=== PATIENT | female | born 1950 | race Caucasian/White ===

== ENCOUNTER 2017-02-21 09:38 | Outpatient (CLI) | payer BC ==
--- NOTE | 2017-02-25 10:35 | MMO ---
BILATERAL SCREENING MAMMOGRAM: DATE: 02/21/17 HISTORY: 66-year-old female for screening mammography. COMPARISON: 02/02/16, 02/01/15. FINDINGS: Bilateral MLO and CC views of the breasts show heterogeneously dense breast parenchyma, which may low er the sensitivity of mammography. Benign-appearing calcifications are seen in the left breast. There is no evidence of suspicious mass, suspicious cluster of microcalcifications, or area of architectur al distortion. Interpretation of this mammogram was performed with the assistance of computer-aided detection. IMPRESSION: BIRADS 2: Benign Finding(s) Annual screening mammography is recommended. POS: [facility]
== END 2017-02-21 09:39 | disposition home or self-care (01) ==
LOC: SCSMAMMO 09:38
PROVIDERS: ATTEND Obstetrics & Gynecology
DX: Z12.31 Encounter for screening mammogram for malignant neoplasm of breast (principal)
CPT/HCPCS: 77067

== ENCOUNTER 2017-08-31 09:40 | Outpatient (CLI) | payer BC, MEDICARE | END 2017-08-31 09:41 | disposition home or self-care (01) | LOC: BICRAD 09:40 | PROVIDERS: ATTEND Physician Assistant Medical | DX: M47.26 Other spondylosis with radiculopathy, lumbar region (principal); M16.0 Bilateral primary osteoarthritis of hip | CPT/HCPCS: 72100; 72170 ==

== ENCOUNTER 2017-09-08 09:39 | Outpatient (CLI) | payer MEDICARE | END 2017-09-08 09:40 | disposition home or self-care (01) | LOC: BICRAD 09:39 | PROVIDERS: ATTEND Physician Assistant Medical | DX: R63.4 Abnormal weight loss (principal); Q67.6 Pectus excavatum | CPT/HCPCS: 71046 ==

== ENCOUNTER 2017-09-12 08:56 | Outpatient (CLI) | payer MEDICARE, BC | END 2017-09-12 08:57 | disposition home or self-care (01) | LOC: BICMAMMO 08:56 | PROVIDERS: ATTEND Physician Assistant Medical | DX: Z13.820 Encounter for screening for osteoporosis (principal); M85.88 Other specified disorders of bone density and structure, other site | CPT/HCPCS: 77080 ==

== ENCOUNTER 2017-10-26 09:26 | Outpatient (CLI) | payer MEDICARE, BC ==
[~2017-10-26 09:26] MED LIST: ISOVUE-370 76%-LOCM 1 ML ONE
[2017-10-26 10:00] LABS: Estimated GFR-MDRD - POC Greater than 90
== END 2017-10-26 09:27 | disposition home or self-care (01) ==
LOC: BICCT 09:26
PROVIDERS: ATTEND Urology
DX: R31.9 Hematuria, unspecified (principal)
CPT/HCPCS: 74178; 82565

== ENCOUNTER 2017-12-28 08:31 | Outpatient (CLI) | payer MEDICARE, BC ==
--- NOTE | 2017-12-28 10:29 | MRI ---
MRI LUMBAR SPINE NONCONTRAST: CLINICAL INDICATIONS: Lumbar radiculopathy. FINDINGS: Vertebral body heights are maintained. There is termination of the conus medullaris at the L1 level. The iliolumbar ligaments are at the L5 level, which is sacralized. There is multilevel bilateral mild to moderate facet joint degenerative hypertrophy. L1-L2: No significant central canal or foraminal stenosis. L2-L3: There is mild central canal narrowing due to a broad-based disk bulge. A left subarticular a nnular fissure is present. There is no high-grade foraminal stenosis. L3-L4: Mild narrowing of the central canal due to disk osteophyte complex without high-grade foramin al stenosis. There is a left subarticular annular fissure. L4-L5: Broad-based disk osteophyte results in mild narrowing of the central canal. There is mild le ft and minimal right neural foraminal narrowing. L5-S1: No significant central canal or neural foraminal stenosis. IMPRESSION: Multilevel degenerative change of the lumbar spine, as outlined above. POS: [facility]
== END 2017-12-28 08:32 | disposition home or self-care (01) ==
LOC: TBSIIMAG 08:31
PROVIDERS: ATTEND Anesthesiology Pain Medicine
DX: M47.26 Other spondylosis with radiculopathy, lumbar region (principal)
CPT/HCPCS: 72148

== ENCOUNTER 2018-03-02 08:57 | Outpatient (CLI) | payer MEDICARE, BC | END 2018-03-02 08:58 | disposition home or self-care (01) | LOC: BICMAMMO 08:57 | PROVIDERS: ATTEND Physician Assistant Medical | DX: Z12.31 Encounter for screening mammogram for malignant neoplasm of breast (principal); R92.1 Mammographic calcification found on diagnostic imaging of breast | CPT/HCPCS: 77063; 77067 ==

== ENCOUNTER 2019-07-16 14:52 | Emergency (ER) | payer MEDICARE, BC ==
--- NOTE | 2019-07-16 16:00 | RAD ---
Right ankle 3 views HISTORY: Fall. Injury. FINDINGS: Ankle mortise and talar dome are intact. Immediately lateral to the base of the talus is a 0.3 cm irregular shaped ossification. Projecting over the fifth metatarsal base on the frontal and notably views is an irregular linear daiana ency with the appearance of a nondisplaced fracture. Fracture line not well demonstrated on the lateral view. IMPRESSION : Small ossific avulsion from the anterior lateral talus. Olivo fracture fifth metatarsal base.
--- NOTE | 2019-07-16 16:04 | RAD ---
EXAM: RIGHT TIBIA AND FIBULA TWO VIEWS: History: Injury from a fall at home. FINDINGS: No fracture, dislocation, or other significant acute osseous abnormality. IMPRESSION: Unremarkable right tibia/fibula. POS: R[facility]
--- NOTE | 2019-07-16 16:15 | RAD ---
EXAM: RIGHT KNEE FOUR VIEWS: History: Injury from a mechanical fall at home. FINDINGS: No fracture, dislocation, or other significant acute process. IMPRESSION: Unremarkable right knee. No acute fracture or dislocation. POS: RRE
== END 2019-07-16 18:20 | disposition short-term general hospital (02) ==
LOC: ERS 14:52
DX: S92.351A Displaced fracture of fifth metatarsal bone, right foot, initial encounter for closed fracture (principal); J30.2 Other seasonal allergic rhinitis; E03.9 Hypothyroidism, unspecified; F17.210 Nicotine dependence, cigarettes, uncomplicated; W18.30XA Fall on same level, unspecified, initial encounter

== ENCOUNTER 2019-11-19 10:56 | Outpatient (CLI) | payer MEDICARE, BC ==
--- NOTE | 2019-11-19 13:20 | MMO ---
Bilateral MAMMO Bilat Screen [facility]. CLINICAL HISTORY: Patient is 69 years old and is seen for screening. The patient has no family history of breast cancer. The patient has no personal history of cancer. The patient has a history of left Excisional Biopsy more than 10 years ago - benign. VIEWS: The views performed were: bilateral craniocaudal with tomosynthesis; bilateral mediolateral oblique with tomosynthesis; and left exaggerated craniocaudal. FILMS COMPARED: The present examination has been compared to prior imaging studies performed at [facility] on 02/21/2017, and at [facility] on 02/05/2015, 02/02/2016 and 03/02/2018. This study has been interpreted with the assistance of computer-aided detection. MAMMOGRAM FINDINGS: The breasts are heterogeneously dense, which could obscure a lesion on mammography. Benign calcifications are noted bilaterally. There are no suspicious masses, suspicious calcifications, or new areas of architectural distortion. IMPRESSION: THERE IS NO MAMMOGRAPHIC EVIDENCE OF MALIGNANCY. A ROUTINE FOLLOW-UP MAMMOGRAM IN 1 YEAR IS RECOMMENDED. THE RESULTS OF THIS EXAM WERE SENT TO THE PATIENT. ACR BI-RADS Category 2 - Benign finding MAMMOGRAPHY NOTE: 1. A negative mammogram report should not delay a biopsy if a dominant of clinically suspicious mass is present. 2. Approximately 10% to 15% of breast cancers are not detected by mammography. 3. Adenosis and dense breasts may obscure an underlying neoplasm. Reported by: MARY CAGE MD Electonically Signed: [id number]
== END 2019-11-19 10:57 | disposition home or self-care (01) ==
LOC: BICMAMMO 10:56
PROVIDERS: ATTEND Obstetrics & Gynecology
DX: Z12.31 Encounter for screening mammogram for malignant neoplasm of breast (principal); Z91.89 Other specified personal risk factors, not elsewhere classified
CPT/HCPCS: 77063; 77067

== ENCOUNTER 2020-05-15 19:11 | Observation (INO) | payer MEDICARE, BC ==
[~2020-05-15 19:11] MED LIST changes: -ISOVUE-370 76%-LOCM 1 ML ONE; +Iopamidol 370 76% 50 ML VIAL FS ONE; +Iopamidol-370 76% 500 ML 1 ML ONE
[2020-05-15] MEDS ORDERED: Morphine 4 MG/ML VIAL ONE (20:27)
[2020-05-15 20:54] LABS: #Basophils 0.1 thou/uL (0.0-0.2); #Lymphocytes 0.9 thou/uL (1.20-3.40); #Monocytes 0.4 thou/uL (0.11-0.59); #Neutrophils 8.8 thou/uL (1.40-6.50); %Basophils 0.6 % (0.0-1.0); %Eosinophils 0.3 % (0.0-10.0); %Lymphocytes 8.8 % (21.0-51.0); %Monocytes 4.1 % (0.0-10.0); %Neutrophils 86.3 % (42.0-75.0); Hemoglobin 13.3 g/dL (12.0-16.0); Mean Corpuscular HGB CONC 34.1 g/dL (32.0-36.0); Mean Corpuscular Hemoglobin 31.6 pg (27.0-31.0); Mean Corpuscular Volume 92.6 fL (78.0-98.0); Mean Platelet Volume 9.3 fL (7.4-10.4); Platelet Count 151 thou/uL (130-400); RBC Distribution Width 12.2 % (11.5-14.5); Red Blood Cell (RBC) Count 4.21 mill/uL (4.20-5.40); White Blood Cell (WBC) Count 10.2 thou/uL (4.8-10.8)
[2020-05-15 21:16] LABS: ALT (SGPT) 12 U/L (8-55); AST (SGOT) 18 U/L (5-34); Albumin 3.9 g/dL (3.4-4.8); Alkaline Phosphatase 72 U/L (40-110); Anion Gap 11 mmol/L (10-20); BUN (Urea Nitrogen) 10 mg/dL (9.8-20.1); Bilirubin, Total 0.5 mg/dL (0.2-1.2); Calc. Creatinine Clearance 0 mL/min (70-130); Calcium 8.6 mg/dL (7.8-10.44); Carbon Dioxide 28 mmol/L (23-31); Chloride 106 mmol/L (98-107); Globulin 2.4 g/dL (2.4-3.5); Glucose 100 mg/dL (80-115); Lipase 18 U/L (8-78); Potassium 3.6 mmol/L (3.5-5.1); Protein, Total 6.3 g/dL (5.8-8.1); Sodium 141 mmol/L (136-145)
[2020-05-16 02:12] VITALS: BMI 17.5
[2020-05-16] MEDS ORDERED: Sodium Chloride 0.9% 1,000 ML IV SCH (02:30)
[2020-05-16] MEDS ORDERED: Bisacodyl 10 MG SUPP PR SCH (06:15)
[2020-05-16 09:15] LABS: SARS-CoV-2 PCR NAA for Saliva Not Detected (NotDetected)
[2020-05-16 11:54] VITALS: BP 110/64
[2020-05-16] MEDS ORDERED: GoLYTELY 4,000 ml Bottle PO SCH (14:00)
[2020-05-16 16:13] VITALS: TEMP 98.5
== END 2020-05-16 17:59 | disposition home or self-care (01) ==
LOC: ERS 19:11 → INTOOBSV 05-16 00:03 → OBSVTOIN 05-16 00:03 → SJJU 05-16 00:03
PROVIDERS: ADMIT Student in an Organized Health Care Education/Training Program; ATTEND Hospitalist
DX: K59.09 Other constipation (principal); R10.84 Generalized abdominal pain; F17.210 Nicotine dependence, cigarettes, uncomplicated; Z79.899 Other long term (current) drug therapy; Z88.0 Allergy status to penicillin; Z88.5 Allergy status to narcotic agent; Z88.8 Allergy status to other drugs, medicaments and biological substances; Z91.018 Allergy to other foods; Z91.048 Other nonmedicinal substance allergy status; Z90.49 Acquired absence of other specified parts of digestive tract; Z20.822 Contact with and (suspected) exposure to COVID-19
CPT/HCPCS: 74177; 80053; 83690; 84443; 85025; 99285; U0003; U0005; 36415; 87635; G0378; J2270; Q9967

== ENCOUNTER 2020-07-01 11:21 | Outpatient (CLI) | payer MEDICARE, BC | END 2020-07-01 11:22 | disposition home or self-care (01) | LOC: BICRAD 11:21 | PROVIDERS: ATTEND Family Medicine | DX: F17.200 Nicotine dependence, unspecified, uncomplicated (principal) | CPT/HCPCS: 71046 ==

== ENCOUNTER 2021-03-10 12:00 | Outpatient (CLI) | payer MEDICARE | END 2021-03-10 12:01 | disposition home or self-care (01) | LOC: BICRAD 12:00 | PROVIDERS: ATTEND Family Medicine | DX: R05.9 Cough, unspecified (principal) | CPT/HCPCS: 71046 ==

== ENCOUNTER 2023-01-13 08:53 | Outpatient (CLI) | payer MEDICARE, OTHER | END 2023-01-13 08:54 | disposition home or self-care (01) | LOC: BICRAD 08:53 | PROVIDERS: ATTEND Physician Assistant | DX: F17.209 Nicotine dependence, unspecified, with unspecified nicotine-induced disorders (principal); J98.4 Other disorders of lung; R91.1 Solitary pulmonary nodule | CPT/HCPCS: 71046 ==

== ENCOUNTER 2023-03-10 08:50 | Outpatient (CLI) | payer OTHER | END 2023-03-10 08:51 | disposition home or self-care (01) | LOC: BICMAMMO 08:50 | PROVIDERS: ATTEND Physician Assistant | DX: Z13.820 Encounter for screening for osteoporosis (principal); Z12.2 Encounter for screening for malignant neoplasm of respiratory organs; M81.0 Age-related osteoporosis without current pathological fracture; F17.210 Nicotine dependence, cigarettes, uncomplicated; M85.852 Other specified disorders of bone density and structure, left thigh; M85.851 Other specified disorders of bone density and structure, right thigh | CPT/HCPCS: 71271; 77080 ==

== ENCOUNTER 2023-09-05 11:00 | Outpatient (CLI) | payer OTHER | END 2023-09-05 11:01 | disposition home or self-care (01) | LOC: BICCT 11:00 | PROVIDERS: ATTEND Internal Medicine | DX: Z12.2 Encounter for screening for malignant neoplasm of respiratory organs (principal); F17.210 Nicotine dependence, cigarettes, uncomplicated; R91.1 Solitary pulmonary nodule | CPT/HCPCS: 71271 ==

== ENCOUNTER 2024-04-12 09:42 | Outpatient (CLI) | payer OTHER | END 2024-04-12 09:43 | disposition home or self-care (01) | LOC: BICMAMMO 09:42 | PROVIDERS: ATTEND Physician Assistant | DX: M81.0 Age-related osteoporosis without current pathological fracture (principal); M85.89 Other specified disorders of bone density and structure, multiple sites | CPT/HCPCS: 77080 ==

== ENCOUNTER 2024-11-20 08:55 | Outpatient (CLI) | payer OTHER | END 2024-11-20 08:56 | disposition home or self-care (01) | LOC: BICCT 08:55 | PROVIDERS: ATTEND Family Medicine | DX: Z12.2 Encounter for screening for malignant neoplasm of respiratory organs (principal); F17.210 Nicotine dependence, cigarettes, uncomplicated | CPT/HCPCS: 71271 ==